=== PATIENT | female | born 1945 | race Caucasian/White ===

== ENCOUNTER 2017-02-17 15:11 | Emergency (ER) | payer MEDICARE ==
[2017-02-17 15:21] VITALS: BP 185/94
--- NOTE | 2017-02-17 16:07 | EDM.PDOC ---
[id number]: discharge Time Seen by Provider: 02/17/17 15:40 Source of Information: Reports: Patient History Limitations: Reports: No limitations - History of Present Illness INITIAL COMMENTS - FREE TEXT/NARRATIVE: 71-year-old female in with intermittent vaginal discharge for the past 1 to 2 months, with intermittent lower abdominal cramping and diarrhea. Denies fevers or chills. No dysuria. She is not eating much and is under a lot of stress. She has not been to a doctor recently. Onset: unknown/unsure Location: Reports: abdomen Quality: Reports: Dull, Other (Intermittent cramping) Severity: mild Associated Symptoms: Reports: loss of appetite, malaise. Denies: chest pain, fever/chills, headaches, nausea/vomiting, shortness of breath - Related Data Allergies Allergy/AdvReac Type Severity Reaction Status Date / Time No Known Allergies Allergy Verified 09/25/15 08:59 Home Meds: Home Meds Clopidogrel [Plavix] 75 mg PO DAILY 12/01/15 [History] Levothyroxine Sodium [Synthroid] 25 mcg PO DAILY 12/01/15 [History] Pramipexole Di-HCl [Mirapex] 0.125 mg PO BID 12/01/15 [History] atorvaSTATin [Lipitor] 40 mg PO DAILY 12/01/15 [History] clonazePAM [Klonopin] 1 mg PO DAILY 12/01/15 [History] levETIRAcetam [Keppra] 750 mg PO BID 12/01/15 [History] Past Medical History HEENT History: Reports: Cataract Gastrointestinal History: Reports: Chronic diarrhea, Other (see below) Other Gastrointestinal History: diarrhea with anxiety 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: Other (see below) Other OB/BYN History: pre cancer uterine Neurological History: Reports: Seizure, Other (see below) Other Neuro History: restless legs Psychiatric History: Reports: Anxiety Endocrine/Metabolic History: Reports: Hypothyroidism, Obesity/BMI 30+ Oncologic (Cancer) History: Reports: Malignant melanoma Dermatologic History: Reports: Other (see below) Other Dermatologic History: rocacea - Infectious Disease History Infectious Disease History: Reports: Other (see below) Other Infectious Disease History: polio - Past Surgical History HEENT Surgical History: Reports: Cataract surgery Cardiovascular Surgical History: Reports: Vascular surgery, Other (see below) Other Cardiovascular Surgeries/Procedures: stents in legs GI Surgical History: Reports: Bariatric procedure, Colonoscopy, EGD, Esophageal dilatation Female Surgical History: Reports: Hysterectomy, Salpingo-oophorectomy Musculoskeletal Surgical History: Reports: Other (see below) Other Musculoskeletal Surgeries/Procedures:: "metal in feel from polio" Oncologic Surgical History: Reports: Other (see below) Other Oncologic Surgeries/Procedures: melanomia removed Social & Family History - Family History Family Medical History: Noncontributory - Tobacco Use Smoking Status *Q: Never Smoker - Caffeine Use Caffeine Use: Reports: Coffee Other Caffeine Use: capiccino in AM - Recreational Drug Use Recreational Drug Use: No ED ROS GENERAL - Review of Systems Review Of Systems: See Below Constitutional: Reports: malaise. Denies: fever, chills HEENT: Reports: No symptoms Respiratory: Denies: Shortness of Breath, Cough Cardiovascular: Denies: Chest pain GI/Abdominal: Reports: Abdominal pain, Diarrhea, Other (Some discomfort with bowel movements). Denies: Difficulty swallowing, Vomiting : Reports: no symptoms Skin: Reports: bruising (Seems to bruise easily but is on Plavix) Neurological: Denies: Headache Psychiatric: Reports: Depression (Marked stress due to family dynamics) ED EXAM, GENERAL - Physical Exam Exam: See Below Exam Limited By: No limitations General Appearance: alert, no apparent distress Eye Exam: bilateral eye: normal inspection (No jaundice) Respiratory/Chest: no respiratory distress, lungs clear Cardiovascular: regular rate, rhythm GI/Abdominal: normal bowel sounds, soft, tender (She reacts with tenderness to palpation of the abdomen especially across the lower abdomen.), other (No focal tenderness or guarding) (Female) Exam: Normal external exam, Other (Speculum exam of the vaginal area shows no abnormality, discharge or lesions. There is some mild vaginal atrophy). No: Vaginal discharge Rectal (Female) Exam: Normal Exam, Other (Rectum is empty, no masses or abnormal findings) Extremities: normal inspection. No: pedal edema Neurological: alert, oriented Psychiatric: depressed mood, flat affect Skin Exam: Warm, Dry, Other (She does have scattered bruises on her arms and legs) Course - Vital Signs Last Recorded V/S: Last Vital Signs Temp 97.9 F 02/17/17 15:20 Pulse 91 02/17/17 15:20 Resp 16 02/17/17 15:20 BP 185/94 H 02/17/17 15:20 Pulse Ox 96 02/17/17 15:20 - Orders/Labs/Meds Labs: Laboratory Tests 02/17/17 02/17/17 02/17/17 Range/Units 15:54 15:54 15:59 WBC 7.4 (4.5-11.0) K/uL RBC 4.56 (3.30-5.50) M/uL Hgb 12.5 (12.0-15.0) g/dL Hct 39.0 (36.0-48.0) % MCV 86 (80-98) fL MCH 27 (27-31) pg MCHC 32 (32-36) % Plt Count 383 (150-400) K/uL Neut % (Auto) 67 H (36-66) % Lymph % (Auto) 23 L (24-44) % [place] % (Auto) 8 H (2-6) % Eos % (Auto) 2 (2-4) % Baso % (Auto) 1 (0-1) % Sodium 144 (140-148) mmol/L Potassium 4.1 (3.6-5.2) mmol/L Chloride 106 (100-108) mmol/L Carbon Dioxide 30 (21-32) mmol/L Anion Gap 7.9 (5.0-14.0) mmol/L BUN 10 (7-18) mg/dL Creatinine 0.8 (0.6-1.0) mg/dL Est Cr Clr Drug Dosing 46.33 mL/min Estimated GFR (MDRD) > 60 (>60) Glucose 101 (74-106) mg/dL Calcium 9.0 (8.5-10.1) mg/dL Total Bilirubin 1.1 H (0.2-1.0) mg/dL AST 23 (15-37) U/L ALT 33 (12-78) U/L Alkaline Phosphatase 128 H (46-116) U/L Total Protein 7.0 (6.4-8.2) g/dL Albumin 3.8 (3.4-5.0) g/dL Globulin 3.2 (2.3-3.5) g/dL Albumin/Globulin Ratio 1.2 (1.2-2.2) Urine Color Yellow Urine Appearance Clear Urine pH 6.0 (4.5-8.0) Ur Specific [place] 1.015 (1.008-1.030) Urine Protein Negative (NEGATIVE) mg/dL Urine Glucose (UA) Normal (NEGATIVE) mg/dL Urine Ketones Negative (NEGATIVE) mg/dL Urine Occult Blood Negative (NEGATIVE) Urine Nitrite Negative (NEGATIVE) Urine Bilirubin Negative (NEGATIVE) Urine Urobilinogen Normal (NORMAL) mg/dL Ur Leukocyte Esterase Negative (NEGATIVE) Urine RBC 0-5 (0-5) Urine WBC 0-5 (0-5) Ur Epithelial Cells Few Amorphous Sediment Not seen Urine Bacteria Few Urine Mucus Few - Re-Assessments/Exams Free Text/Narrative Re-Assessment/Exam: 02/17/17 16:18 Nothing was found on the vaginal exam to send to lab. No stool was present for guaiac. A CBC, CMP and UA were obtained 02/17/17 16:45 All labs were negative, UA was negative. I asked the patient if she feels a CT of the abdomen and pelvis would be worthwhile or reassuring and her main concern was just the vaginal discharge which does not appear to be present at this time. She will return if worsening. I suspect she has some symptoms related to stress and irritable bowel Departure - Departure Time of Disposition: 16:51 Disposition: Home, Self-Care 01 Condition: good Clinical Impression: Abdominal pain, Vaginal discharge Referrals: PCP,None [Primary Care Provider] - Forms: ED Department Discharge Care Plan Goals: Try to increase diet and activity as tolerated and return anytime if worsening or concerns. No medication changes.
== END 2017-02-17 16:50 | disposition home or self-care (01) ==
LOC: JP.ED 15:11
DX: N95.2 Postmenopausal atrophic vaginitis (principal); S40.022A Contusion of left upper arm, initial encounter; S40.021A Contusion of right upper arm, initial encounter; S80.12XA Contusion of left lower leg, initial encounter; S80.11XA Contusion of right lower leg, initial encounter; F41.9 Anxiety disorder, unspecified; E03.9 Hypothyroidism, unspecified; E66.9 Obesity, unspecified; Z98.49 Cataract extraction status, unspecified eye; Z90.710 Acquired absence of both cervix and uterus; Z98.84 Bariatric surgery status; Z79.899 Other long term (current) drug therapy; X58.XXXA Exposure to other specified factors, initial encounter
CPT/HCPCS: 36415; 80053; 81001; 85025; 99282; 99284

== ENCOUNTER 2020-12-14 12:24 | Emergency (ER) | payer MEDICARE ==
[2020-12-14 14:33] VITALS: BP 130/73; PULSE 77
--- NOTE | 2020-12-14 15:47 | EDM.PDOC ---
ED HPI GENERAL MEDICAL PROBLEM - General Chief Complaint: Skin Complaint Stated Complaint: RASH ON LOWER BELLY AREA Time Seen by Provider: 12/14/20 15:30 Source of Information: Reports: Patient, Old Records, RN History Limitations: Reports: No Limitations - History of Present Illness INITIAL COMMENTS - FREE TEXT/NARRATIVE: 75 yo female here with a rash above her navel that has been there awhile. At times it itches and at times it hahn. Has not had before. Has not been to the clinic. Onset: Gradual Duration: Day(s):, Week(s): Location: Reports: Abdomen Quality: Reports: Burning, Other (itching) Severity: Mild Improves with: Reports: None Worsens with: Reports: Other (time, unknown) Context: Reports: Other (See HPI) Associated Symptoms: Reports: No Other Symptoms Treatments JUNIOR ESTIMATOR: Reports: Other (see below) (various topical agents) - Related Data Allergies Allergy/AdvReac Type Severity Reaction Status Date / Time No Known Allergies Allergy Verified 12/14/20 14:32 Home Meds: Home Meds Clopidogrel [Plavix] 75 mg PO DAILY 12/01/15 [History] Levothyroxine Sodium [Synthroid] 25 mcg PO DAILY 12/01/15 [History] Pramipexole Di-HCl [Mirapex] 0.75 mg PO BEDTIME 12/01/15 [History] atorvaSTATin [Lipitor] 40 mg PO DAILY 12/01/15 [History] clonazePAM [Klonopin] 1 mg PO BEDTIME 12/01/15 [History] levETIRAcetam [Keppra] 750 mg PO DAILY 12/01/15 [History] Cetirizine [ZyrTEC] 2 tab PO DAILY 09/28/19 [History] Montelukast [Singulair] 1 tab PO BEDTIME 09/28/19 [History] Potassium Chloride 1 tab PO DAILY 09/28/19 [History] Sertraline [Zoloft] 1 tab PO DAILY 09/28/19 [History] Past Medical History HEENT History: Reports: Cataract Cardiovascular History: Reports: High Cholesterol, Hypertension Gastrointestinal History: Reports: Chronic Diarrhea, Other (See Below) Other Gastrointestinal History: diarrhea with anxiety Genitourinary History: Reports: None 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: , Other (See Below) Other STONEWORKING BELT SANDER History: pre cancer uterine Musculoskeletal History: Reports: Other (See Below) Neurological History: Reports: Seizure, Other (See Below) Other Neuro History: restless legs Psychiatric History: Reports: Anxiety Endocrine/Metabolic History: Reports: Hypothyroidism, Obesity/BMI 30+ Hematologic History: Reports: Anticoagulation Therapy Oncologic (Cancer) History: Reports: Malignant Melanoma Dermatologic History: Reports: Other (See Below) Other Dermatologic History: rocacea - Infectious Disease History Infectious Disease History: Reports: Chicken Pox, Other (See Below) Other Infectious Disease History: polio - Past Surgical History Head Surgeries/Procedures: Reports: None HEENT Surgical History: Reports: Cataract Surgery Cardiovascular Surgical History: Reports: Vascular Surgery, Other (See Below) Other Cardiovascular Surgeries/Procedures: stents in legs GI Surgical History: Reports: Bariatric Procedure, Colonoscopy, EGD, Esophageal Dilatation Female Surgical History: Reports: Hysterectomy, Salpingo-Oophorectomy Endocrine Surgical History: Reports: None Neurological Surgical History: Reports: None Musculoskeletal Surgical History: Reports: Other (See Below) Other Musculoskeletal Surgeries/Procedures:: "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" Oncologic Surgical History: Reports: Other (See Below) Other Oncologic Surgeries/Procedures: melanomia removed Dermatological Surgical History: Reports: None Social & Family History - Family History Family Medical History: No Pertinent Family History - Tobacco Use Tobacco Use Status *Q: Never Tobacco User Second Hand Smoke Exposure: No - Caffeine Use Caffeine Use: Reports: Coffee Other Caffeine Use: capiccino in AM - Recreational Drug Use Recreational Drug Use: No ED ROS GENERAL - Review of Systems Review Of Systems: See Below Constitutional: Reports: No Symptoms HEENT: Reports: No Symptoms Respiratory: Reports: No Symptoms Cardiovascular: Reports: No Symptoms GI/Abdominal: Reports: No Symptoms Skin: Reports: Rash Neurological: Reports: No Symptoms ED EXAM, SKIN/RASH Exam: See Below Exam Limited By: No Limitations General Appearance: Alert, WD/WN, No Apparent Distress Neurological: Alert, Oriented, CN II-XII Intact, Normal Cognition, No Motor/Sensory Deficits Psychiatric: Normal Affect, Normal Mood Skin: Warm, Dry, Intact, Rash (lichenified rash about 4 inches in diameter above the umbilicus, dry, scaly). No: No Rash Location, Skin: Abdomen Characteristics: Confluent Associated features: Scaling. No: Warmth Course - Vital Signs Last Recorded V/S: Last Vital Signs Temp 36.5 C 12/14/20 14:34 Pulse 77 12/14/20 14:34 Resp 18 12/14/20 14:34 BP 130/73 12/14/20 14:34 Pulse Ox 96 12/14/20 14:34 Departure - Departure Time of Disposition: 15:46 Disposition: Home, Self-Care 01 Condition: Good Clinical Impression: Contact dermatitis Qualifiers: Contact dermatitis type: unspecified Contact dermatitis trigger: other trigger Qualified Code(s): L25.8 - Unspecified contact dermatitis due to other agents - Discharge Information *PRESCRIPTION DRUG MONITORING PROGRAM REVIEWED*: Not Applicable *COPY OF PRESCRIPTION DRUG MONITORING REPORT IN PATIENT DERRICK: Not Applicable Instructions: Contact Dermatitis, [id number] Referrals: Nely Paulson DO [Primary Care Provider] - Additional Instructions: Use triamcinolone cream every 8 hrs as directed. Recheck with your doctor in 7- 10 days. Avoid scratching. Sepsis Event Note (ED) - Evaluation Sepsis Screening Result: No Definite Risk - Focused Exam Vital Signs: Vital Signs Temp Pulse Resp BP Pulse Ox 12/14/20 14:34 36.5 C 77 18 130/73 96 12/14/20 14:32 36.5 C 77 18 130/73 96
== END 2020-12-14 15:55 | disposition home or self-care (01) ==
LOC: JP.ED 12:24
DX: L25.8 Unspecified contact dermatitis due to other agents (principal); I10 Essential (primary) hypertension; E78.00 Pure hypercholesterolemia, unspecified; R56.9 Unspecified convulsions; E03.9 Hypothyroidism, unspecified; E66.9 Obesity, unspecified; Z68.32 Body mass index [BMI] 32.0-32.9, adult; Z79.01 Long term (current) use of anticoagulants; Z79.02 Long term (current) use of antithrombotics/antiplatelets; Z79.899 Other long term (current) drug therapy
CPT/HCPCS: 99282; 99283

== ENCOUNTER 2021-04-14 14:42 | Emergency (ER) | payer MEDICARE ==
[2021-04-14 16:06] VITALS: BP 148/68; PULSE 69
--- NOTE | 2021-04-14 16:15 | EDM.PDOC ---
ED HPI GENERAL MEDICAL PROBLEM - General Chief Complaint: General Stated Complaint: WRONG DOSE MEDS Time Seen by Provider: 04/14/21 15:55 Source of Information: Reports: Patient, Family, Old Records, RN History Limitations: Reports: No Limitations - History of Present Illness INITIAL COMMENTS - FREE TEXT/NARRATIVE: 75 yo female here after family accidentally gave her double doses of her night time meds for a couple days. She is now very sedated. Family was able to wake her up and get her into a car. Did not call their doctor, but rather brought her straight to the ER for eval. 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: Reports: Other (see below) (none) - Related Data Allergies Allergy/AdvReac Type Severity Reaction Status Date / Time No Known Allergies Allergy Verified 04/14/21 15:33 Home Meds: Home Meds Clopidogrel [Plavix] 75 mg PO BEDTIME 12/01/15 [History] Levothyroxine Sodium [Synthroid] 25 mcg PO BEDTIME 12/01/15 [History] atorvaSTATin [Lipitor] 40 mg PO BEDTIME 12/01/15 [History] clonazePAM [Klonopin] 1 mg PO BEDTIME 12/01/15 [History] levETIRAcetam [Keppra] 750 mg PO BEDTIME 12/01/15 [History] Montelukast [Singulair] 1 tab PO BEDTIME 09/28/19 [History] Potassium Chloride 1 tab PO DAILY 09/28/19 [History] Sertraline [Zoloft] 1 tab PO DAILY 09/28/19 [History] Pramipexole Di-HCl [Mirapex] 1 mg PO BID 04/14/21 [History] Past Medical History HEENT History: Reports: Cataract Cardiovascular History: Reports: High Cholesterol, Hypertension Gastrointestinal History: Reports: Chronic Diarrhea, Other (See Below) Other Gastrointestinal History: diarrhea with anxiety Genitourinary History: Reports: None HOME ECONOMICS EXPERT History: Reports: , Other (See Below) Other HOME ECONOMICS EXPERT History: pre cancer uterine Musculoskeletal History: Reports: None, Other (See Below) Neurological History: Reports: Seizure, Other (See Below) Other Neuro History: restless legs Psychiatric History: Reports: Anxiety Endocrine/Metabolic History: Reports: Hypothyroidism, Obesity/BMI 30+ Hematologic History: Reports: Anticoagulation Therapy Oncologic (Cancer) History: Reports: Malignant Melanoma Dermatologic History: Reports: Other (See Below) Other Dermatologic History: rocacea - Infectious Disease History Infectious Disease History: Reports: Chicken Pox, Other (See Below) Other Infectious Disease History: polio - Past Surgical History Head Surgeries/Procedures: Reports: None HEENT Surgical History: Reports: Cataract Surgery Cardiovascular Surgical History: Reports: Vascular Surgery, Other (See Below) Other Cardiovascular Surgeries/Procedures: stents in legs GI Surgical History: Reports: Bariatric Procedure, Colonoscopy, EGD, Esophageal Dilatation Female Surgical History: Reports: Hysterectomy, Salpingo-Oophorectomy Endocrine Surgical History: Reports: None Neurological Surgical History: Reports: None Musculoskeletal Surgical History: Reports: Other (See Below) Other Musculoskeletal Surgeries/Procedures:: "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" Oncologic Surgical History: Reports: Other (See Below) Other Oncologic Surgeries/Procedures: melanomia removed Dermatological Surgical History: Reports: None Social & Family History - Family History Family Medical History: No Pertinent Family History - Tobacco Use Tobacco Use Status *Q: Never Tobacco User - Caffeine Use Caffeine Use: Reports: Coffee Other Caffeine Use: capiccino in AM - Recreational Drug Use Recreational Drug Use: No ED ROS GENERAL - Review of Systems Review Of Systems: See Below Constitutional: Reports: Malaise HEENT: Reports: No Symptoms Respiratory: Reports: No Symptoms Cardiovascular: Reports: No Symptoms Endocrine: Reports: No Symptoms GI/Abdominal: Reports: No Symptoms : Reports: No Symptoms Musculoskeletal: Reports: No Symptoms Skin: Reports: No Symptoms Neurological: Reports: Other (sedation) ED EXAM, GENERAL - Physical Exam Exam: See Below Exam Limited By: No Limitations General Appearance: Alert, WD/WN, No Apparent Distress, Obese Eye Exam: Bilateral Eye: Normal Inspection Ears: Normal External Exam, Normal Canal, Hearing Grossly Normal, Normal TMs Ear Exam: Bilateral Ear: Auricle Normal, Canal Normal, TM normal Nose: Normal Inspection, No Blood Throat/Mouth: Normal Inspection, Normal Lips, Normal Oropharynx, Normal Voice, No Airway Compromise Head: Atraumatic, Normocephalic Neck: Normal Inspection Respiratory/Chest: No Respiratory Distress, Lungs Clear, Normal Breath Sounds, No Accessory Muscle Use Cardiovascular: Regular Rate, Rhythm, No Edema GI/Abdominal: Normal Bowel Sounds, Soft, Non-Tender, No Distention Back Exam: Normal Inspection. No: CVA Tenderness (R), CVA Tenderness (L) Extremities: Normal Inspection, Normal Range of Motion, Non-Tender, No Pedal Edema Neurological: Oriented, CN II-XII Intact, Normal Cognition, No Motor/Sensory Deficits, Slow to Respond, Other (opens eyes when spoken to, appears sleepy) Psychiatric: Normal Affect, Normal Mood Skin Exam: Warm, Dry, Intact, Normal Color, No Rash Course - Vital Signs Last Recorded V/S: Last Vital Signs Temp 36.4 C 04/14/21 15:13 Pulse 69 04/14/21 16:06 Resp 16 04/14/21 15:25 BP 148/68 H 04/14/21 16:06 Pulse Ox 97 04/14/21 16:06 - Orders/Labs/Meds Orders: Active Orders 24 hr Category Date Time Status UA W/MICROSCOPIC [URIN] Stat Lab 04/14/21 16:36 Ordered Labs: Laboratory Tests 04/14/21 04/14/21 Range/Units 16:18 16:18 WBC 6.6 (4.5-11.0) K/uL RBC 3.76 (3.30-5.50) M/uL Hgb 8.5 L D (12.0-15.0) g/dL Hct 29.0 L (36.0-48.0) % MCV 77 L (80-98) fL MCH 23 L (27-31) pg MCHC 29 L (32-36) % Plt Count 398 (150-400) K/uL Sodium 144 (140-148) mmol/L Potassium 4.2 (3.6-5.2) mmol/L Chloride 108 (100-108) mmol/L Carbon Dioxide 28 (21-32) mmol/L Anion Gap 8.0 (5.0-14.0) mmol/L BUN 18 D (7-18) mg/dL Creatinine 0.9 (0.6-1.0) mg/dL Est Cr Clr Drug Dosing 38.79 mL/min Estimated GFR (MDRD) > 60 (>60) Glucose 97 (74-106) mg/dL Calcium 8.6 (8.5-10.1) mg/dL Troponin I < 0.017 (0.000-0.056) ng/mL Departure - Departure Time of Disposition: 16:59 Disposition: Home, Self-Care 01 Condition: Fair Clinical Impression: Benzodiazepine intoxication - Discharge Information *PRESCRIPTION DRUG MONITORING PROGRAM REVIEWED*: No *COPY OF PRESCRIPTION DRUG MONITORING REPORT IN PATIENT DERRICK: No Referrals: Nely Paulson DO [Primary Care Provider] - Forms: ED Department Discharge Additional Instructions: Resume normal doses of her meds. Hold the clonazepam until she returns to a normal level of alertness. Sepsis Event Note (ED) - Evaluation Sepsis Screening Result: No Definite Risk - Focused Exam Vital Signs: Vital Signs Temp Pulse Resp BP Pulse Ox 04/14/21 16:06 69 148/68 H 97 04/14/21 15:25 68 16 140/60 95 04/14/21 15:13 36.4 C 71 14 140/60 94 L - My Orders Last 24 Hours: My Active Orders 04/14/21 16:36 UA W/MICROSCOPIC [URIN] Stat - Assessment/Plan Last 24 Hours: My Active Orders 04/14/21 16:36 UA W/MICROSCOPIC [URIN] Stat
== END 2021-04-14 17:16 | disposition home or self-care (01) ==
LOC: JP.ED 14:42
DX: T42.4X1A Poisoning by benzodiazepines, accidental (unintentional), initial encounter (principal); E78.00 Pure hypercholesterolemia, unspecified; I10 Essential (primary) hypertension; E03.9 Hypothyroidism, unspecified; E66.9 Obesity, unspecified; Z68.30 Body mass index [BMI] 30.0-30.9, adult; Z79.02 Long term (current) use of antithrombotics/antiplatelets; Z79.899 Other long term (current) drug therapy
CPT/HCPCS: 36415; 80048; 81001; 84484; 85027; 99284

== ENCOUNTER 2021-09-01 18:30 | Emergency (ER) | payer MEDICARE ==
[2021-09-01 18:55] VITALS: BP 95/50; PULSE 61
--- NOTE | 2021-09-01 19:26 | CRLCT ---
For Patients: As a result of the Century Cures Act, medical imaging exams and procedure reports are released immediately into your electronic medical record. You may view this report before your referring provider. If you have questions, please contact your health care provider. Indication: Head injury, on Plavix Technique: Nonenhanced axial CT imaging through the head. Sagittal and coronal reconstructions are provided. Comparison: None Findings: There is no evidence of intracranial hemorrhage or cerebral edema. [place]-white matter differentiation is preserved. Patchy hypoattenuation of the cerebral white matter most likely reflects chronic microvascular ischemic change. The ventricles are normal in size. The basal cisterns are patent. The calvarium is intact. The visualized paranasal sinuses and mastoid air cells are aerated. There is a thin left parietal scalp hematoma. Impression: Thin left parietal scalp hematoma. No evidence of calvarial fracture, intracranial hemorrhage, or brain contusion. Please note that all CT scans at this facility use dose modulation, iterative reconstruction, and/or weight-based dosing when appropriate to reduce radiation dose to as low as reasonably achievable. Dictated by Yuri Sam MD @ 09/01/2021 7:23:56 PM (Electronically Signed)
[2021-09-01] MEDS ORDERED: Acetaminophen/HYDROcodone 325-5 MG Tab PO ONE (19:37)
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
== END 2021-09-01 21:03 | disposition home or self-care (01) ==
LOC: JP.ED 18:30
DX: S06.0X0A Concussion without loss of consciousness, initial encounter (principal); E78.00 Pure hypercholesterolemia, unspecified; I10 Essential (primary) hypertension; E03.9 Hypothyroidism, unspecified; E66.9 Obesity, unspecified; Z68.30 Body mass index [BMI] 30.0-30.9, adult; Z79.02 Long term (current) use of antithrombotics/antiplatelets; Z79.899 Other long term (current) drug therapy; W18.09XA Striking against other object with subsequent fall, initial encounter
CPT/HCPCS: 70450; 99284; A9270

== ENCOUNTER 2021-11-08 12:00 | Emergency (ER) | payer MEDICARE ==
[2021-11-08] MEDS ORDERED: Albuterol/Ipratropium 3.0-0.5 MG/3 ML Neb Soln NEB ONE (13:11)
[2021-11-08 13:29] VITALS: BP 95/68; PULSE 80
[2021-11-08 13:48] LABS: CORONAVIRUS COVID-19 NAA NEGATIVE (NEGATIVE)
[2021-11-08] MEDS ORDERED: Azithromycin 250 MG Tab PO ONE (14:00)
[2021-11-08] MEDS ORDERED: Dexamethasone 4 MG/ML SDV PO ONE (14:00)
== END 2021-11-08 14:46 | disposition home or self-care (01) ==
LOC: JP.ED 12:00
DX: J20.8 Acute bronchitis due to other specified organisms (principal); R09.02 Hypoxemia; E78.00 Pure hypercholesterolemia, unspecified; I10 Essential (primary) hypertension; E03.9 Hypothyroidism, unspecified; E66.9 Obesity, unspecified; Z68.30 Body mass index [BMI] 30.0-30.9, adult; Z79.02 Long term (current) use of antithrombotics/antiplatelets; Z79.01 Long term (current) use of anticoagulants; Z79.899 Other long term (current) drug therapy; Z20.822 Contact with and (suspected) exposure to COVID-19
CPT/HCPCS: 0241U; 36415; 71046; 80053; 83605; 84145; 85025; 94640; 99284; A9270; J8540; J7620-GY

== ENCOUNTER 2022-05-10 11:40 | Emergency (ER) | payer MEDICARE ==
[2022-05-10] MEDS ORDERED: Sodium Chloride 0.9% 10 ML Syringe FLUSH PRN (11:53)
[2022-05-10] MEDS ORDERED: Sodium Chloride 0.9% 1,000 ML IV SCH (12:00)
[2022-05-10 12:37] LABS: ESTIMATED GFR 90 mL/min (>60)
[2022-05-10 17:39] VITALS: BP 145/57; PULSE 64
== END 2022-05-10 19:02 | disposition home or self-care (01) ==
LOC: JP.ED 11:40
DX: R56.9 Unspecified convulsions (principal); E78.00 Pure hypercholesterolemia, unspecified; I10 Essential (primary) hypertension; E03.9 Hypothyroidism, unspecified; E66.9 Obesity, unspecified; Z79.02 Long term (current) use of antithrombotics/antiplatelets; Z79.899 Other long term (current) drug therapy; Z68.32 Body mass index [BMI] 32.0-32.9, adult
CPT/HCPCS: 36415; 70450; 80053; 80143; 80177; 80179; 80305; 80307; 81001; 82140; 83605; 84443; 85025; 96360; 96361; 99285; J7050

== ENCOUNTER 2023-08-17 16:20 | Emergency (ER) | payer MEDICARE ==
[2023-08-17 16:58] VITALS: BP 140/83; PULSE 65
[2023-08-17] MEDS ORDERED: Acetaminophen 325 MG Tab PO ONE (17:07)
[2023-08-17 17:18] LABS: HEMATOCRIT 37.9 % (34.3-46.0); HEMOGLOBIN 12.7 g/dL (11.2-15.5); MEAN CORPUSCULAR HEMOGLOBIN 31.1 pg (31.6-35.5); MEAN CORPUSCULAR HGB CONC 33.5 g/dL (31.6-35.5); MEAN CORPUSCULAR VOLUME 92.7 fL (81.4-99.0); RED BLOOD CELL COUNT 4.09 M/uL (3.77-5.24); WHITE BLOOD CELL COUNT,WBC 6.7 K/uL (3.2-11.0)
[2023-08-17 17:20] LABS: BASE EXCESS VENOUS 3.3 mm/L; BICARBONATE,VENOUS 27.3 mmol/L; CARBOXYHEMOGLOBIN 3.3 % (0.0-1.6); METHEMOGLOBIN 0.8 %; O2 SATURATION VENOUS 76.4; OXYHEMOGLOBIN 73.3 %; PCO2 VENOUS 40.7 mm/Hg; PH,VENOUS 7.441 (7.350-7.450); PO2 VENOUS 40.5 mm/Hg; TOTAL HEMOGLOBIN 13.2 g/dL (12.0-16.0)
[2023-08-17 17:36] LABS: PROTHROMBIN TIME 10.4 sec (9.2-10.6)
[2023-08-17 17:40] LABS: A/G RATIO 1.1 (1.2-2.2); ALANINE AMINOTRANSFERASE,ALT 12 U/L (12-78); ALBUMIN 3.2 g/dL (3.4-5.0); ALKALINE PHOSPHATASE 126 U/L (46-116); ANION GAP 4.5 mmol/L (5.0-14.0); ASPARTATE AMNIOTRANSFERASE,AST 15 U/L (15-37); BILIRUBIN TOTAL 0.5 mg/dL (0.2-1.0); BLOOD UREA NITROGEN,BUN 15 mg/dL (7-18); CALCIUM 8.8 mg/dL (8.5-10.1); CARBON DIOXIDE,CO2 31 mmol/L (21-32); CHLORIDE,CL 105 mmol/L (100-108); CREATININE 0.8 mg/dL (0.6-1.0); EST CRCL DRUG DOSING (CG) 41.63 mL/min; ESTIMATED GFR 75 mL/min (>60); GLUCOSE RANDOM 99 mg/dL (74-106); POTASSIUM,K 4.2 mmol/L (3.6-5.2); PROTEIN TOTAL,TP 6.2 g/dL (6.4-8.2); SODIUM,NA 140 mmol/L (140-148)
== END 2023-08-17 18:51 | disposition home or self-care (01) ==
LOC: JP.ED 16:20
DX: I73.9 Peripheral vascular disease, unspecified (principal); G40.909 Epilepsy, unspecified, not intractable, without status epilepticus; G14 Postpolio syndrome; M25.522 Pain in left elbow; E78.00 Pure hypercholesterolemia, unspecified; I10 Essential (primary) hypertension; E03.9 Hypothyroidism, unspecified; E66.9 Obesity, unspecified; Z68.33 Body mass index [BMI] 33.0-33.9, adult; Z79.01 Long term (current) use of anticoagulants; Z79.02 Long term (current) use of antithrombotics/antiplatelets; Z79.899 Other long term (current) drug therapy; W18.30XA Fall on same level, unspecified, initial encounter
CPT/HCPCS: 36415; 71250; 71250-26; 74176; 74176-26; 80053; 82803; 85027; 85610; 99284

== ENCOUNTER 2025-01-11 10:04 | Emergency (ER) | payer MEDICARE ==
[2025-01-11 10:36] VITALS: BP 112/64; PULSE 74
[2025-01-11 11:26] LABS: BASOPHILS ABSOLUTE AUTO 0.03 K/uL (0.00-0.10); BASOPHILS PERCENT AUTO 0.5 % (0.1-1.3); EOSINOPHILS ABSOLUTE AUTO 0.09 K/uL (0.00-0.40); EOSINOPHILS PERCENT AUTO 1.5 % (0.0-5.4); HEMATOCRIT 34.8 % (34.3-46.0); HEMOGLOBIN 11.7 g/dL (11.2-15.5); IMMATURE GRAN PERCENT AUTO 0.3 % (0.0-0.7); LYMPHOCYTES ABSOLUTE AUTO 1.55 K/uL (0.8-3.3); LYMPHOCYTES PERCENT AUTO 25.4 % (11.4-47.7); MEAN CORPUSCULAR HEMOGLOBIN 30.9 pg (31.6-35.5); MEAN CORPUSCULAR HGB CONC 33.6 g/dL (31.6-35.5); MEAN CORPUSCULAR VOLUME 91.8 fL (81.4-99.0); MONOCYTES ABSOLUTE AUTO 0.43 K/uL (0.20-0.90); NEUTROPHILS ABSOLUTE AUTO 3.99 K/uL (1.0-7.6); NEUTROPHILS PERCENT AUTO 65.3 % (40.0-78.1); PLATELET COUNT,PLT 274 K/uL (130-375); RED BLOOD CELL COUNT 3.79 M/uL (3.77-5.24); WHITE BLOOD CELL COUNT,WBC 6.1 K/uL (3.2-11.0)
[2025-01-11 11:27] LABS: IMMATURE GRAN ABSOLUTE AUTO 0.02 K/uL (0.00-0.23)
[2025-01-11 11:41] LABS: CALCIUM 9.1 mg/dL (8.5-10.1); CREATININE 0.8 mg/dL (0.6-1.0); EST CRCL DRUG DOSING (CG) 40.96 mL/min; POTASSIUM,K 4.2 mmol/L (3.6-5.2)
[2025-01-11 11:42] LABS: ANION GAP 11.2 mmol/L (5.0-14.0)
[2025-01-11 11:43] LABS: APPEARANCE,URINE CLEAR (CLEAR); BILIRUBIN,URINE NEGATIVE (NEGATIVE); COLOR,URINE YELLOW (YELLOW); GLUCOSE,URINE NEGATIVE (NEGATIVE); KETONES,URINE NEGATIVE (NEGATIVE); LEUKOCYTE ESTERASE,URINE NEGATIVE (NEGATIVE); NITRITE,URINE NEGATIVE (NEGATIVE); OCCULT BLOOD,URINE NEGATIVE (NEGATIVE); PROTEIN,URINE NEGATIVE (NEGATIVE); UROBILINOGEN,URINE 0.2 EU/dL (0.2-1.0)
[2025-01-11 11:49] LABS: AMORPHOUS SEDIMENT,URINE NOT SEEN; BACTERIA,URINE RARE; EPITHELIAL CELLS,URINE RARE; MUCUS,URINE NOT SEEN; RBC,URINE 0-5 (0-5); WBC,URINE 0-5 (0-5)
== END 2025-01-11 12:11 | disposition home or self-care (01) ==
LOC: JP.ED 10:04
DX: R19.7 Diarrhea, unspecified (principal); I10 Essential (primary) hypertension; E78.00 Pure hypercholesterolemia, unspecified; E03.9 Hypothyroidism, unspecified; Z79.02 Long term (current) use of antithrombotics/antiplatelets; Z79.899 Other long term (current) drug therapy
CPT/HCPCS: 36415; 80048; 81001; 85025; 99283; 99284